=== PATIENT | female | born 1955 | race Caucasian/White ===

== ENCOUNTER → 2021-05-30 10:03 | Outpatient (CLI) | payer MEDICARE, OTHER, SELFPAY ==
[2021-05-30 19:03] LABS: Creatine Kinase 93 U/L (30-135)
== END ==
PROVIDERS: PCP Physician Assistant; Referring Provider Physician Assistant Medical; Visit Provider Physician Assistant Medical
DX: M79.10 Myalgia, unspecified site (principal)
CPT/HCPCS: 82550

== ENCOUNTER → 2021-09-25 08:04 | Outpatient (CLI) | payer MEDICARE, OTHER, SELFPAY ==
[2021-09-25 18:36] LABS: Add Manual Diff / Slide Review NO; Basophils Absolute Auto 0 /uL (0-100); Eosinophils Absolute Auto 100 /uL (0-450); Eosinophils Percent Auto 1.4 % (2-4); Hematocrit 39.3 % (36-46); Hemoglobin 13.6 g/dL (12.0-16.0); Lymphocytes Absolute Auto 2100 /uL (1100-4500); Lymphocytes Percent Auto 51.4 % (25-40); Mean Corpuscular HGB Conc 34.7 % (30-36); Mean Corpuscular Hemoglobin 30.8 PG (26-34); Mean Corpuscular Volume 88.9 fL (80-100); Monocytes Absolute Auto 400 /uL (0-900); Monocytes Percent Auto 9.5 % (3-14); Neutrophils Absolute Auto 1500 /uL (1500-7000); Neutrophils Percent Auto 36.7 % (50-75); Platelet Count 258 X10^3/uL (150-400); Red Blood Cell Count 4.42 X10^6/uL (4.0-5.2); Red Cell Distribution Width 13.5 % (11.6-14.8); White Blood Cell Count 4.1 X10^3/uL (4.5-11.0)
[2021-09-25 19:00] LABS: Alanine Aminotransferase 21 IU/L (<35); Albumin 4.4 g/dL (3.5-5.0); Albumin Globulin Ratio 1.7 (1.0-2.8); Alkaline Phosphatase 62 U/L (38-126); Aspartate Aminotransferase 29 IU/L (14-36); BUN Creatinine Ratio 10.1 (6-22); Bilirubin Total 0.7 mg/dL (0.2-1.3); Blood Urea Nitrogen 9 mg/dL (7-17); Calcium 9.6 mg/dL (8.4-10.2); Carbon Dioxide 30 mmol/L (22-32); Chloride 105 mmol/L (98-107); Cholesterol 274 mg/dL (140-199); Estimated Glomerular Filt Rate > 60.0 mL/min (>60); Globulin 2.6 g/dL (1.7-4.1); Glucose 96 mg/dL (80-110); HDL Cholesterol 89 mg/dL (40-60); HEMOLYSIS < 15 (0-50); LDL Cholesterol Calculated 164 mg/dL (<100); Potassium 3.9 mmol/L (3.4-5.1); Sodium 139 mmol/L (137-145); Triglycerides 104 mg/dL (35-150)
== END ==
PROVIDERS: PCP Physician Assistant Medical; Visit Provider Physician Assistant Medical
DX: I10 Essential (primary) hypertension (principal); I73.01 Raynaud's syndrome with gangrene; E78.5 Hyperlipidemia, unspecified; Z13.0 Encounter for screening for diseases of the blood and blood-forming organs and certain disorders involving the immune mechanism; Z13.228 Encounter for screening for other metabolic disorders; Z13.29 Encounter for screening for other suspected endocrine disorder
CPT/HCPCS: 80053; 80061; 84443; 85025

== ENCOUNTER → 2021-10-23 09:29 | Outpatient (CLI) | payer MEDICARE, OTHER, SELFPAY ==
--- NOTE | 2021-10-23 | DI.MRI.S_ITS ---
PROCEDURE: MR KNEE RT WO CON INDICATIONS: Other tear of medial meniscus, current injury, right knee, s TECHNIQUE: Noncontrast sagittal PD fast spin echo and T2 fast spin echo with fat saturation, sagittal 3-D FLASH with fat saturation; coronal T1 spin echo and PD fast spin echo with fat saturation, and axial PD fast spin echo with fat saturation through the knee. COMPARISON: [facility], CR, XR KNEE 4+ VIEWS RIGHT, 06/20/2021, 13:44. FINDINGS: Image quality: Excellent. Anterior Cruciate Ligament: Intact. Posterior Cruciate Ligament: Intact. Medial Collateral Ligament: Intact. Lateral Collateral Ligament: Intact. Medial Meniscus: Horizontal oblique tearing of the posterior horn and body of the medial meniscus is seen extending to the mid to inner third of the tibial articular surface. Lateral Meniscus: Mild intrasubstance signal is seen without extension to an articular surface, consistent with mild intrasubstance degeneration. Medial and Lateral Tendons: The semimembranosus tendon insertions and meniscocapsular junction appear intact. Visualized portions of the pes anserinus tendons appear normal. No abnormal bursal fluid. The long and short heads of the biceps femoris tendon appear intact. The popliteus tendon appears intact. No signs of posterolateral corner injury. Iliotibial band appears normal. Anterior Structures: Mild distal quadriceps tendinosis with superior patellar enthesophyte formation. No patellar subluxation. No femoral trochlear dysplasia or ventral trochlear prominence. Mild scarring is seen in Hoffa's fat pad. Bones: No acute trabecular bone injury or fracture. Medial Femorotibial Cartilage: Grade 3-4 cartilage thinning is seen throughout the weight-bearing portion of the medial femorotibial compartment with subchondral cystic changes at the central weight-bearing portion. Lateral Femorotibial Cartilage: Focal and cartilage loss at the posterior weight-bearing portion of the lateral tibial plateau with mild subchondral edema. Findings are superimposed on generalized mild partial-thickness cartilage thinning. Patellofemoral Cartilage: Full-thickness cartilage loss is seen at the median ridge and lateral facet of the patella with subchondral cystic changes and edema. Grade 3 chondromalacia is seen in the trochlear groove. Soft Tissues: Small joint effusion is present. Trace medial popliteal cyst. The musculature surrounding the knee is normal in bulk. IMPRESSION: 1. Horizontal oblique tearing of the posterior horn and body of the medial meniscus extending to the mid to inner third of the tibial articular surface. 2. Mild intrasubstance degeneration in the lateral meniscus without a discrete tear. 3. Tricompartmental osteoarthrosis with areas of high-grade and full-thickness cartilage loss in all 3 compartments. 4. Mild distal quadriceps tendinosis. 5. Small joint effusion. Dictated by: Sreedhar Galvan M.D. on 10/23/2021 at 13:40 Approved by: Sreedhar Galvan M.D. on 10/23/2021 at 13:47
== END ==
PROVIDERS: PCP Physician Assistant Medical; Referring Provider Orthopaedic Surgery Foot and Ankle Surgery; Visit Provider Orthopaedic Surgery Foot and Ankle Surgery
DX: S83.241A Other tear of medial meniscus, current injury, right knee, initial encounter (principal); M17.11 Unilateral primary osteoarthritis, right knee; M25.461 Effusion, right knee; X58.XXXA Exposure to other specified factors, initial encounter
CPT/HCPCS: 73721

== ENCOUNTER → 2022-04-25 11:08 | Outpatient (CLI) | payer MEDICARE, OTHER, SELFPAY ==
[2022-04-25 19:19] LABS: Add Manual Diff / Slide Review NO; Basophils Absolute Auto 0 /uL (0-100); Basophils Percent Auto 0.7 % (0-2); Eosinophils Absolute Auto 0 /uL (0-450); Eosinophils Percent Auto 0.9 % (2-4); Hematocrit 43.8 % (36-46); Hemoglobin 14.9 g/dL (12.0-16.0); Lymphocytes Absolute Auto 1800 /uL (1100-4500); Lymphocytes Percent Auto 33.6 % (25-40); Mean Corpuscular HGB Conc 34.1 % (30-36); Mean Corpuscular Hemoglobin 30.8 PG (26-34); Mean Corpuscular Volume 90.3 fL (80-100); Monocytes Absolute Auto 400 /uL (0-900); Monocytes Percent Auto 7.2 % (3-14); Neutrophils Absolute Auto 3200 /uL (1500-7000); Neutrophils Percent Auto 57.6 % (50-75); Platelet Count 305 X10^3/uL (150-400); Red Blood Cell Count 4.85 X10^6/uL (4.0-5.2); Red Cell Distribution Width 13.3 % (11.6-14.8); White Blood Cell Count 5.5 X10^3/uL (4.5-11.0)
[2022-04-25 19:27] LABS: Alanine Aminotransferase 21 IU/L (<35); Albumin 4.9 g/dL (3.5-5.0); Albumin Globulin Ratio 1.5 (1.0-2.8); Alkaline Phosphatase 89 U/L (38-126); Aspartate Aminotransferase 26 IU/L (14-36); BUN Creatinine Ratio 17.6 (6-22); Bilirubin Total 0.7 mg/dL (0.2-1.3); Blood Urea Nitrogen 13 mg/dL (7-17); Calcium 9.8 mg/dL (8.4-10.2); Carbon Dioxide 28 mmol/L (22-32); Chloride 102 mmol/L (98-107); Estimated Glomerular Filt Rate > 60 mL/min (>60); Globulin 3.3 g/dL (1.7-4.1); Glucose 114 mg/dL (80-110); HEMOLYSIS < 15 (0-50); Potassium 4.3 mmol/L (3.4-5.1); Sodium 141 mmol/L (137-145); Total Protein 8.2 g/dL (6.3-8.2); Triglycerides 126 mg/dL (35-150)
[2022-04-25 19:45] LABS: Hemoglobin A1C% w Est Avg Glu 5.6 % (4.0-6.0)
[2022-04-25 19:57] LABS: Cholesterol 348 mg/dL (140-199); HDL Cholesterol 125 mg/dL (40-60); LDL Cholesterol Calculated 198 mg/dL (<100)
[2022-04-25 21:16] LABS: TSH w/ Reflex to FT4 2.06 uIU/mL (0.47-4.68)
== END ==
PROVIDERS: Orthopaedic Surgery Foot and Ankle Surgery; PCP Physician Assistant Medical; Visit Provider Physician Assistant Medical
DX: I10 Essential (primary) hypertension (principal); I73.01 Raynaud's syndrome with gangrene; R73.9 Hyperglycemia, unspecified; D72.819 Decreased white blood cell count, unspecified; K27.9 Peptic ulcer, site unspecified, unspecified as acute or chronic, without hemorrhage or perforation; Z12.11 Encounter for screening for malignant neoplasm of colon; Z13.0 Encounter for screening for diseases of the blood and blood-forming organs and certain disorders involving the immune mechanism; Z13.228 Encounter for screening for other metabolic disorders; Z13.29 Encounter for screening for other suspected endocrine disorder; E78.5 Hyperlipidemia, unspecified
CPT/HCPCS: 80053; 80061; 83036; 84443; 85025

== ENCOUNTER → 2022-05-29 08:06 | Outpatient (CLI) | payer MEDICARE, OTHER, SELFPAY ==
[2022-05-29 20:59] LABS: COVID19 - ORCAS (NP or Nasal) Negative (Negative)
== END ==
PROVIDERS: PCP Physician Assistant Medical; Visit Provider Physician Assistant Medical
DX: Z20.822 Contact with and (suspected) exposure to COVID-19 (principal); Z01.812 Encounter for preprocedural laboratory examination
CPT/HCPCS: C9803; U0003

== ENCOUNTER 2022-05-31 06:05 | Day surgery (SDC) | payer MEDICARE, OTHER, SELFPAY ==
[2022-05-21 11:48] VITALS: BMI 22.6
[2022-05-31] VITALS (12 sets, daily range): BP systolic 120–159; BP diastolic 59–88; PULSE 71–102; RESP 11–22; TEMP 36.1–36.9; O2SAT 94–100; BMI 22.6; BMI 25.8
--- NOTE | 2022-05-31 06:00 | DI.RAD.S_ITS ---
PROCEDURE: XR KNEE RT 1TO2V INDICATIONS: postop tka TECHNIQUE: 2 view(s) of the knee acquired. COMPARISON: None. FINDINGS: Bones: Patient is status post knee joint arthroplasty. Hardware components are in expected positions. Visualized bony structures are intact. Soft tissues: Overlying postoperative changes are noted. IMPRESSION: Postoperative changes from right knee arthroplasty. No definite unexpected findings. Dictated by: Sreedhar Wilburn M.D. on 05/31/2022 at 17:24 Approved by: Sreedhar Wilburn M.D. on 05/31/2022 at 17:25
--- NOTE | 2022-05-31 07:06 | PM.PREOP ---
Pre-operative Note COVID-19 COVID-19 status: Negative Interval Note History & Physical reviewed/Exam performed by Physician: Yes Changes to H&P: No
[2022-05-31] MEDS: CELECOXIB 200 MG CAPSULE PO (07:13)
[2022-05-31] MEDS: LACTATED RINGERS 1,000 ML 42 ML IV (07:13)
[2022-05-31] MEDS: ACETAMINOPHEN 325 MG TABLET 975 MG PO (07:13)
[2022-05-31] MEDS: TRANEXAMIC ACID 1,000 MG in SODIUM CHLORIDE 0.9% 100 ML 200 MG IV (08:00)
[2022-05-31] MEDS: CEFAZOLIN 2 GM/100 ML PREMIX 100 ML IV ×2 (08:04→15:01)
--- NOTE | 2022-05-31 08:13 | SUR.OPER ---
Supine on padded OR bed, head on pillow, arms secured on padded arm boards at <90 degrees abduction, legs uncrossed, safety belt at thigh, tape over blanket over left leg. Stockinette placed between touniquet and skin.
--- NOTE | 2022-05-31 08:17 | SUR.OPER ---
Supine on padded OR bed. Pillow under head, arms secured on padded armboards <90 degree abduction. Safety belt across torso. Non-operative leg secured with tape over blanket over lower leg. Operative leg secured in DeMayo positioner. Foam padded brace at thigh of operative leg.
[2022-05-31] MEDS: BUPIVACAINE 0.25% (PF) 60 ML, EPINEPHrine 0.3 MG INJ (08:32)
[2022-05-31] MEDS: BUPIVACAINE LIPOSOME 266 MG/20 ML VIAL INJ (08:33)
[2022-05-31] MEDS: MORPHINE 4 MG/ML INJ INJ (08:39)
[2022-05-31] MEDS: TRANEXAMIC ACID 1,000 MG in SODIUM CHLORIDE 0.9% 100 ML 100 MG IV (10:16)
--- NOTE | 2022-05-31 11:07 | P.OP_ITS ---
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 She has failed conservative treatment. She has been indicated for right total knee arthroplasty. The patient has significant pain associated with arthritis of her knee and morning stiffness interfering with normal daily function including ambulation standing and activities that are weight-bearing. There is significant crepitation range of motion and marked joint line tenderness with x-rays showing significant level of arthritis. Patient has failed an exercise program, anti-inflammatory medications and previous injections. The risks and benefits of the procedure have been discussed with the patient and given the opportunity to ask questions. The risks of surgery include but are not limited to infection, malunion, nonunion, persistence of pain, damage to nerves and blood vessels, posttraumatic arthritis, DVT, PE, cardiopulmonary complications and . The patient expressed a thorough understanding of the risks and benefits of surgery and has elected to proceed. Consent was signed in the office. During the operation, the services of a physician surgical supervisor were medically indicated and necessary to provide the exposure of the operative site for the surgical procedure and to maintain the limb in a proper position to carry out the operation safely and efficiently. Without a qualified assistant art director being present this would extended the operative procedure and made the procedure technically more difficult to perform. Surgeon: Dilma Davidson Orange Picking Supervisor: Carrie Lora Anesthesia Type: General, Spinal and Local Operative Notes Findings: Full-thickness cartilage loss medial compartment and patellofemoral compartment. Closure Type: primary Specimen(s): none sent Prosthetic devices, grafts, tissues, transplants, or devices: Huerta and nephew Journey BCS2 Femur size 6 Oxinium, right Tibia size 3 right nonporous Patella zina II 29 mm x 7.5 round Poly 9 mm right size 3-4 Estimated Blood Loss (mL): 50 Blood products transfused: none Tourniquet time (min): 124 Procedure in detail: The Patient was seen in the preoperative area where the patient and site of surgery were identified in the operative knee was marked informed consent confirmed. This was the right knee. The patient received the appropriate preoperative medications. The patient was taken to the operating room placed on operating table in the supine position. Spinal anesthetic were administered. A general anesthetic was also used. Patient received the appropriate preoperative antibiotic which was 2 g of Ancef. The operative extremity was then prepped and draped in the standard sterile fashion with a nonsterile tourniquet high on the thigh. Patient was placed on the green foam bolsters. A lateral post was placed at the level of the proximal thigh /trochanter area as a lateral post. Formal time-out procedure was performed confirming the patient's side and site of surgery and administration of appropriate preoperative antibiotics and implants were in the room accounted for. All were in agreement. Patient received a preoperative dose of 1 g tranexamic acid and then a 2nd dose 1 g at tourniquet release. Patient was prepped and draped in the standard sterile fashion and the foot was placed into the [facility] leg guo. This was taken into high flexion and the incision was marked out over the anterior knee to the level of the medial tubercle tubercle. The Esmarch was then used for exsanguination and the tourniquet was inflated to 250 mmHg. Was made through the skin and subcutaneous tissue in high flexion this was then brought down into 30? of flexion for the medial parapatellar arthrotomy. A marker pen was used to reji the arthrotomy site for later repair. Joint fluid was evacuated. The anterior osteophytes and soft tissues were removed. Routine medial release was initially made along the medial proximal tibia with Bovie. The patella was on quite a bit of tension on attempted eversion so the quad incision was lengthened to relax it and then the patella was 1st cut using the saw sized and then subluxed throughout the case and protected. Leg was taken back up through flexion and attention was returned to the femur. Then the rotational landmarks of Whitesides line and the trans epicondylar axis were marked on the femur with electrocautery. Then the intramedullary guide for the femur was created. The distal femoral cut was made in 6? of valgus using the intramedullary guide with the cut setting on 0+ as the patient did not have a preoperative flexion contracture this just skimmed the condyles so the guide was then moved back to the +2 cut to get a good butterfly cut appearance of the distal femur. The ACL and PCL released. The proximal tibia was then cut using the intramedullary guide, taking 9 mm off the less involved side this was the lateral plateau. The Mychal wing was used to check the slope through the guide. Second pass was made through the tibial cut guide with the saw after the cut tibia was removed plane down about 1 more mm and further smooth then the resection surface. In extension remainders of the medial and lateral menisci were removed. The extension flexion gaps were then checked using both the flexion extension blocks. And was selected for a 9 mm poly which fit excellent in flexion and extension without any gapping or laxity. The Femur was then sized and the rotation set using the posterior condyle referencing. This was matched with Whitesides line this was dialed in to 5? external rotation at the posterior condyles. This measured between a 5 size and 6. Initially the size 5 cut block was on the Mychal wing was checked this was felt like it was going to notch laterally so it was moved anterior and checked it 1 or 2 mm + and this was still close so the block was upsized to was 6 which fit well. An Mychal wing passed without evidence of notching. The Cut block was then placed and the anterior, posterior and chamfer cuts were then made. The posterior osteophytes and soft tissues were then removed. Then in extension the posterior capsule was injected with a mixture of 40 mL of 0.25% Marcaine and 20 mL of Exparel care to avoid excessive injection posterior laterally. The remainder of this was saved for the capsule and subcutaneous tissue and placed during cement curing. Attention was then returned to the tibia and this was prepared with the rotation set by the intramedullary guide. Lined up with the tibial crest and the 2nd toe. The tibia was sized to a 3 which had excellent fit anterior medially and posterior laterally. The tibial trial was then pinned in place and the trial femoral components were placed. Then the intercondylar notch was cut through the femoral trial to create the box this was done with the distal than the proximal drill and then the box cut distally and then proximally. Next the insert was placed and the trial poly placed. This was stable in flexion and extension and there was a 0- 135 degree range of motion. The patella was then finished this was sized to a 29 and the patellar buttonholes were drilled. The 29 x 7.5 patella button trial was placed and the knee was taken through range of motion the patella tracked appropriately. The tibia was then finished with the drill and flange cuts and then this was removed. All trials were removed. The wound and bone was irrigated with pulsatile lavage. This was then dried with a sponge. The components were verified and opened and the cement was mixed. Cement was applied to the components and then to the bone then the tibia was cemented in place 1st followed by the femur then the patella. Excess cement was removed. With care looking around the back of the knee. Remainder of the injection was injected around the capsule. trial 9 mm poly was placed back in the leg was placed into extension for the patellar cementing. After this was cured approximately 15 minutes later and the dilute Betadine solution was placed for at least 3 minutes in the wound this was then irrigated out and the final poly was placed. This was a 9 mm poly. The tourniquet was released hemostasis was achieved. Final 1 g of tranexamic acid was given IV at the time of tourniquet release. The capsule was closed with 1. Ethibond suture. Subcutaneous layer was closed with 3-0 Vicryl suture. Skin was closed with a running V lock suture Stratafix Monocryl type suture and Dermabond. An Aquacel dressing was placed. An Giovani wrap was applied. Anesthetic was terminated the patient was woken from anesthesia and taken to recovery room in good condition. There no immediate complications from this procedure. The patient will be maintained on a standard total knee replacement protocol with weight-bearing as tolerated. Complications: none Post-operative Condition: stable Disposition: PACU Plan for aftercare: Weightbear as tolerated right knee. Will start aspirin for DVT prophylaxis. 81 mg b.i.d.. Work with physical therapy. Plan on discharge home today. Will start outpatient physical therapy. Follow-up in 2 weeks for a wound check. May shower with the Aquacel dressing. Patient has prescriptions for pain medications and antiemetics already.
[2022-05-31] MEDS: KETOROLAC 30 MG/ML VIAL IV (11:19)
[2022-05-31] MEDS: HYDROCODONE/ACET 5/325 TABLET 1 TAB PO (11:25)
[2022-05-31] MEDS: ONDANSETRON 4 MG/2 ML INJ IV (11:32)
[2022-05-31] MEDS: LACTATED RINGERS 1,000 ML 100 ML IV ×2 (12:42→15:01)
[2022-05-31] MEDS: ACETAMINOPHEN 325 MG TABLET 650 MG PO ×2 (12:42→17:04)
--- NOTE | 2022-05-31 15:00 | PT.IIE ---
Current Diagnoses Unilateral primary osteoarthritis, right knee (05/31/22) Personal history of other (healed) physical injury and trauma (05/31/22) Surgery Performed Operation Date: 05/31/22 07:45 Actual Procedures p Total Knee Arthroplasty(Right) - Dilma Davidson MD Surgical History (Last Updated 05/21/22 @ 12:06 by Alycia Schmidt, RN) Anesthesia History of arthroscopic knee surgery History of arthroscopic surgery of shoulder History of cataract removal with insertion of prosthetic lens History of colonoscopy with polypectomy History of orthopedic surgery (~2014) History of tubal ligation (~1993) Medical History (Last Updated 05/21/22 @ 12:03 by Alycia Schmidt RN) Cataracts, bilateral (~2014) Facial neuralgia Hemorrhoid (~1989) Skin cancer (~2019) Physical Therapy Inpatient Evaluation/Re-Eval M1 PT/OT-IP Prior Functional Status Start: 05/31/22 16:26 Freq: NEEDED Status: Active Protocol: Document 05/31/22 15:00 AB (Rec: 05/31/22 16:35 AB [id number]) Medical Review Prior Functional Status Medical History Reviewed Yes Communication able to make needs known Mobility and Gait pt stated that she is independent with all mobilities and ambulation without AD Social History Household Members spouse Living Arrangements House Number of Floors (Floors) Two Floors Number of Stairs To Enter/Railing? 12 steps with wide rails to enter the house 12 steps with L rail ascending to bedroom level Home Environment Standard Height Toilet,Tub/ Shower Home Equipment Crutches M2 PT-IP Current Condition Start: 05/31/22 16:26 Freq: NEEDED Status: Active Protocol: Document 05/31/22 15:00 AB (Rec: 05/31/22 16:35 AB [email or web address]) Physical Therapy Current Condition Current Condition Evaluation Date 05/31/22 Treatment Diagnosis s/p R TKA; difficulty in walking Onset Date 05/31/22 M3 PT-IP Subjective Start: 05/31/22 16:26 Freq: NEEDED Status: Active Protocol: Document 05/31/22 15:00 AB (Rec: 05/31/22 16:35 AB [id number]) Subjective Physical Therapy Visit Type Type Initial Evaluation Visit Start Time 15:00 Visit Stop Time 15:45 Total Visit Minutes 45 Number of MICROSOFT ARCHITECT Visits 0 Physical Therapy Visit Comments Patient Comments pt is agreeable to do PT Therapy Pain Assessment Pain When Pain Assessed At Rest Pain Present Pain Present Pain Reported Location Right Knee Intensity 2 Scale Used Numeric (0 - 10) Pain Management Techniques Apply Cold,Distraction, Elevation,Modification of Treatment,Re-positioning, Timing of Activity with Medications M4 PT-IP Mobility and Gait Start: 05/31/22 16:26 Freq: NEEDED Status: Active Protocol: Document 05/31/22 15:00 AB (Rec: 05/31/22 16:35 AB [id number]) PT-Bed Mobility Assessment Supine to Sit Supine to Sit Standby Assistance PT-Transfer Assessment Sit to and From Stand Sit to and from Stand Standby Assistance,1 Person Assistance,Use of Upper Extremities Equipment Transfer Assistive Device Gait Belt,Axillary Crutches Orthotic/Prosthetic Devices or Brace: No Transfers Transfer Destination Chair Transfer Technique ambulated Transfer Ability Level of Assist Standby Assistance,1 Person Assistance,Use of Upper Extremities Comments Mobility Comments pt completed supine to sit SBA . completed sit to stand using crutches SBA. pt ambulated in room using crutches SBA. pt agreed to do stairs. ambulated in the hallway using crutches ~ 125 ft. assisted to the stairs. completed up/down steps using L rail and crutches sBA and then repeated again with just using crutches SBA. pt ambulated back to her room using crutches ~ 200 ft SBA. pt ambulated to bed. positioned in bed. call light and table placed within reach . Gait Assessment Gait Gait Assistance Required: Standby Assistance,1 Person Assist Distance (Feet) 200 Able to Maintain Weight Bearing Status Yes During Gait Assistive Devices Assistive Device Gait Belt,Axillary Crutches Orthotic/Prosthetic Devices or Brace: No Gait Deviations General Gait Pattern Decreased Stride Length, Decreased Feet Clearance Factors Limiting Gait Function Factors Limiting Gait Function Decreased Activity Tolerance, Decreased Strength,Pain,Poor Balance Stair Climbing Assessment Evaluation Level of Assist On Stairs Standby Assistance Devices Stair Climbing Assistive Devices Axillary Crutches,Left Railing Technique/Endurance Stair Climbing Direction Ascend and Descend Stair Climbing Technique Step to Step Number of Steps Climbed 3 Query Text: Stair Climbing Set # Repetitions (reps) 2 PT-Balance Assessment Sitting Balance and Reactions Static Sitting Balance Ability Normal Dynamic Sitting Balance Ability Normal Standing Balance and Reactions Static Standing Balance Ability Good Dynamic Standing Balance Ability Fair Device Used crutches M5 PT-IP Objective Assessments Start: 05/31/22 16:26 Freq: NEEDED Status: Active Protocol: Document 05/31/22 15:00 AB (Rec: 05/31/22 16:35 AB [id number]) Orientation Orientation/Cognition Level of Alertness Alert Orientation Name,Age,Birthday,Month,Date, Year,Day of Week,Place, Situation Language Function Ability No Deficits Noted Safety Awareness Understands Safety Issues Memory Description No Deficits Noted Gross Range of Motion Lower Extremity ROM Assessment Within Functional Limits Strength Lower Extremity Strength Assessment Within Functional Limits Coordination Assessment Gross Coordination Gross Coordination WNL Sensation Assessment Sensation Gross Sensation WNL Muscle Tone Muscle Tone WNL Yes M6 PT-IP Treatment Start: 05/31/22 16:26 Freq: NEEDED Status: Active Protocol: Document 05/31/22 15:00 AB (Rec: 05/31/22 16:35 AB [id number]) Physical Therapy Treatment Education Education Provided Precautions,Weight Bearing Status,Post-Op Packet,Safety M7 PT-IP Assessment and Plan Start: 05/31/22 16:26 Freq: NEEDED Status: Active Protocol: Document 05/31/22 15:00 AB (Rec: 05/31/22 16:35 AB [id number]) PT Summary Assessment and Plan Potential Rehabilitation Potential Good Status of Condition at Evaluation Stable Summary Impairments Pain,ROM,Strength,Balance, Coordination,Sensation,Tone, Cognition,Bed Mobility, Transfers,Gait,Activity Tolerance Assessment Summary pt requiring SBA with mobility using axillary crutches. pt plans to go home with spouse to assist. pt may go home when medically stable. Goals Bed Mobility Goal Independent Transfer Goal Independent,Crutches Gait Goal Independent,Crutches Gait Distance 300 Other Goals up/down 12 steps using crutches mod I Days to Meet Goals 5 Frequency of Treatment Frequency Of Treatment Twice a Day Treatment Plan Physical Therapy Treatment Plan Bed Mobility Training,Transfer Training,Gait Training, Therapeutic Exercise,Balance Retraining,Post Op Education, Discharge Planning,Hot or Cold Pack,Neuromuscular Re-ed, Coordination Retraining,Manual Therapy Weight Bearing Status Weight Bearing Status Weight Bear as Tolerated Allowed Weight Bearing Amount (enter % WBAT RLE or #) (%) Recommendations To Nursing Amount of Assist Needed Standby Assistance Discharge Recommendations PT Discharge Recommendations Home with Assistance, Outpatient PT Transportation Needs at Discharge Private Vehicle
[2022-05-31] MEDS: ONDANSETRON 4 MG ODT PO (18:16)
== END 2022-05-31 18:55 | disposition home or self-care (01) ==
LOC: OR 07:24 → AC 12:30
PROVIDERS: PCP Physician Assistant Medical; Referring Provider Orthopaedic Surgery Foot and Ankle Surgery; Visit Provider Orthopaedic Surgery Foot and Ankle Surgery
PROC: 0SRC0JZ Replacement of Right Knee Joint with Synthetic Substitute, Open Approach (ICD-10-PCS; CPT 27447; principal; 2022-05-31 07:45)
DX: M17.11 Unilateral primary osteoarthritis, right knee (principal); I10 Essential (primary) hypertension; E78.5 Hyperlipidemia, unspecified
CPT/HCPCS: 27447; 73560; 97116; 97161; C1776; C1713; C9290; J0171; J0690; J1100; J1170; J1885; J2250; J2270; J2405; J2704; J3010

== ENCOUNTER → 2022-11-11 08:32 | Outpatient (CLI) | payer MEDICARE, OTHER, SELFPAY ==
[2022-05-31 12:42] VITALS: BMI 25.8
[2022-11-11 09:13] LABS: Add Manual Diff / Slide Review NO; Basophils Absolute Auto 0 /uL (0-100); Basophils Percent Auto 0.7 % (0-2); Eosinophils Absolute Auto 100 /uL (0-450); Hematocrit 37.6 % (36-46); Hemoglobin 12.9 g/dL (12.0-16.0); Lymphocytes Absolute Auto 2000 /uL (1100-4500); Mean Corpuscular HGB Conc 34.4 % (30-36); Mean Corpuscular Hemoglobin 30.8 PG (26-34); Mean Corpuscular Volume 89.7 fL (80-100); Monocytes Absolute Auto 500 /uL (0-900); Monocytes Percent Auto 8.5 % (3-14); Neutrophils Absolute Auto 3200 /uL (1500-7000); Neutrophils Percent Auto 54.8 % (50-75); Platelet Count 308 X10^3/uL (150-400); Red Cell Distribution Width 14.8 % (11.6-14.8); White Blood Cell Count 5.8 X10^3/uL (4.5-11.0)
--- NOTE | 2022-11-11 09:27 | DI.MRI.S_ITS ---
PROCEDURE: MR KNEE RT WO CON INDICATIONS: RIGHT KNEE PAIN, EFFUSION TECHNIQUE: Noncontrast sagittal PD fast spin echo and T2 fast spin echo with fat saturation, sagittal 3-D FLASH with fat saturation; coronal T1 spin echo and PD fast spin echo with fat saturation, and axial PD fast spin echo with fat saturation through the knee. COMPARISON: [facility] [place], CR, XR KNEE 4+ VIEWS RIGHT, 10/01/2022, 15:29. [facility], CR, XR KNEE 4+ VIEWS RIGHT, 08/20/2022, 13:53. [facility], CR, XR KNEE 4+ VIEWS RIGHT, 07/15/2022, 12:22. [facility], CR, XR KNEE RT 1TO2V, 05/31/2022, 11:25. [facility], MR, MR KNEE RT WO CON, 10/23/2021, 9:51. FINDINGS: Image quality: Excellent. Bones: There are postsurgical changes related to total knee arthroplasty. Metallic artifacts obscure adjacent areas. Soft tissue: There is focal thickening of the lateral patellofemoral ligament/patellar retinaculum. No mass deep to the superficial skin marker. Mild quadriceps and patellar tendinitis. No quadriceps or patellar tendon tear. There is moderate knee joint fluid. Trace Castillo's cyst. IMPRESSION: 1. Total knee arthroplasty with metallic artifacts obscuring adjacent structures. 2. Focal thickening of the lateral patellofemoral ligament/patellar retinaculum consistent with partial tear or scarring. 3. Moderate knee joint effusion. 4. Mild quadriceps tendinitis and patellar tendinitis. Dictated by: Mathew Valdez M.D. on 11/11/2022 at 10:28 Approved by: Mathew Valdez M.D. on 11/11/2022 at 10:36
[2022-11-11 09:46] LABS: C-Reactive Protein Quant 0.5 mg/dL (<1.0)
[2022-11-11 10:30] LABS: Erythrocyte Sedimentation Rate 7 MM/HR (0-20)
== END ==
PROVIDERS: PCP Physician Assistant Medical; Referring Provider Orthopaedic Surgery Foot and Ankle Surgery; Visit Provider Orthopaedic Surgery Foot and Ankle Surgery
DX: M23.91 Unspecified internal derangement of right knee (principal); M76.51 Patellar tendinitis, right knee; M25.561 Pain in right knee; M25.461 Effusion, right knee; Z96.651 Presence of right artificial knee joint
CPT/HCPCS: 36415; 73721; 85025; 85651; 86140

== ENCOUNTER → 2023-04-17 09:23 | Outpatient (CLI) | payer MEDICARE, OTHER, SELFPAY ==
[2022-05-31 12:42] VITALS: BMI 25.8
[2023-04-17 21:10] LABS: Add Manual Diff / Slide Review NO; Basophils Absolute Auto 100 /uL (0-100); Basophils Percent Auto 0.9 % (0-2); Eosinophils Absolute Auto 0 /uL (0-450); Eosinophils Percent Auto 0.6 % (2-4); Hematocrit 40.5 % (36-46); Hemoglobin 13.9 g/dL (12.0-16.0); Lymphocytes Absolute Auto 2000 /uL (1100-4500); Lymphocytes Percent Auto 34.8 % (25-40); Mean Corpuscular HGB Conc 34.4 % (30-36); Mean Corpuscular Hemoglobin 30.6 PG (26-34); Mean Corpuscular Volume 89.1 fL (80-100); Monocytes Absolute Auto 400 /uL (0-900); Neutrophils Absolute Auto 3200 /uL (1500-7000); Neutrophils Percent Auto 56.7 % (50-75); Platelet Count 300 X10^3/uL (150-400); Red Blood Cell Count 4.55 X10^6/uL (4.0-5.2); Red Cell Distribution Width 13.9 % (11.6-14.8); White Blood Cell Count 5.7 X10^3/uL (4.5-11.0)
[2023-04-17 21:46] LABS: Alanine Aminotransferase 27 IU/L (<35); Albumin 4.6 g/dL (3.5-5.0); Albumin Globulin Ratio 1.5 (1.0-2.8); Alkaline Phosphatase 79 U/L (38-126); Aspartate Aminotransferase 32 IU/L (14-36); BUN Creatinine Ratio 12.7 (6-22); Bilirubin Total 0.8 mg/dL (0.2-1.3); Blood Urea Nitrogen 10 mg/dL (7-17); Calcium 9.1 mg/dL (8.4-10.2); Carbon Dioxide 25 mmol/L (22-32); Chloride 102 mmol/L (98-107); Cholesterol 309 mg/dL (140-199); Estimated Glomerular Filt Rate > 60 mL/min (>60); Globulin 3.1 g/dL (1.7-4.1); Glucose 93 mg/dL (80-110); HDL Cholesterol 95 mg/dL (40-60); HEMOLYSIS 19 (0-50); LDL Cholesterol Calculated 186 mg/dL (<100); Potassium 4.2 mmol/L (3.4-5.1); Sodium 139 mmol/L (137-145); Total Protein 7.7 g/dL (6.3-8.2); Triglycerides 142 mg/dL (35-150)
[2023-04-17 22:04] LABS: Vitamin D 25 Hydroxy (D3) 44.9 ng/mL (30.0-100.0)
[2023-04-17 22:17] LABS: TSH w/ Reflex to FT4 2.13 uIU/mL (0.47-4.68)
== END ==
PROVIDERS: PCP Family Medicine; Visit Provider Family Medicine
DX: E78.00 Pure hypercholesterolemia, unspecified (principal); M81.0 Age-related osteoporosis without current pathological fracture; E78.5 Hyperlipidemia, unspecified; I10 Essential (primary) hypertension; Z82.62 Family history of osteoporosis
CPT/HCPCS: 80053; 80061; 82306; 84443; 85025

== ENCOUNTER → 2023-07-21 10:14 | Outpatient (CLI) | payer MEDICARE, OTHER, SELFPAY ==
[2022-05-31 12:42] VITALS: BMI 25.8
[2023-07-21 19:31] LABS: Add Manual Diff / Slide Review NO; Basophils Absolute Auto 100 /uL (0-100); Basophils Percent Auto 0.9 % (0-2); Eosinophils Absolute Auto 200 /uL (0-450); Eosinophils Percent Auto 3.8 % (2-4); Hematocrit 38.7 % (36-46); Hemoglobin 13.3 g/dL (12.0-16.0); Lymphocytes Absolute Auto 2400 /uL (1100-4500); Mean Corpuscular HGB Conc 34.4 % (30-36); Mean Corpuscular Hemoglobin 30.4 PG (26-34); Mean Corpuscular Volume 88.5 fL (80-100); Monocytes Absolute Auto 600 /uL (0-900); Monocytes Percent Auto 10.3 % (3-14); Neutrophils Absolute Auto 2400 /uL (1500-7000); Platelet Count 341 X10^3/uL (150-400); Red Blood Cell Count 4.38 X10^6/uL (4.0-5.2); Red Cell Distribution Width 13.7 % (11.6-14.8); White Blood Cell Count 5.6 X10^3/uL (4.5-11.0)
[2023-07-21 19:57] LABS: C-Reactive Protein Quant 0.6 mg/dL (<1.0)
[2023-07-21 20:32] LABS: Erythrocyte Sedimentation Rate 23 MM/HR (0-20)
== END ==
PROVIDERS: PCP Family Medicine; Visit Provider Family Medicine
DX: R79.82 Elevated C-reactive protein (CRP) (principal)
CPT/HCPCS: 85025; 85651; 86140

== ENCOUNTER → 2024-04-28 10:00 | Outpatient (CLI) | payer MEDICARE, OTHER, SELFPAY ==
[2024-04-20 14:08] VITALS: BMI 25.8
[2024-04-28 19:08] LABS: Add Manual Diff / Slide Review NO; Basophils Absolute Auto 0 /uL (0-100); Basophils Percent Auto 0.7 % (0-2); Eosinophils Absolute Auto 100 /uL (0-450); Hemoglobin 13.8 g/dL (12.0-16.0); Lymphocytes Absolute Auto 2100 /uL (1100-4500); Lymphocytes Percent Auto 37.6 % (25-40); Mean Corpuscular HGB Conc 33.8 % (30-36); Mean Corpuscular Volume 88.9 fL (80-100); Monocytes Absolute Auto 400 /uL (0-900); Monocytes Percent Auto 7.4 % (3-14); Neutrophils Absolute Auto 2900 /uL (1500-7000); Neutrophils Percent Auto 52.3 % (50-75); Platelet Count 318 X10^3/uL (150-400); Red Blood Cell Count 4.61 X10^6/uL (4.0-5.2); Red Cell Distribution Width 13.9 % (11.6-14.8); White Blood Cell Count 5.6 X10^3/uL (4.5-11.0)
[2024-04-28 19:13] LABS: Alanine Aminotransferase 25 IU/L (<35); Albumin 4.3 g/dL (3.5-5.0); Albumin Globulin Ratio 1.4 (1.0-2.8); Alkaline Phosphatase 98 U/L (38-126); Aspartate Aminotransferase 71 IU/L (14-36); BUN Creatinine Ratio 11.5 (6-22); Bilirubin Total 0.8 mg/dL (0.2-1.3); Blood Urea Nitrogen 10 mg/dL (7-17); Calcium 9.6 mg/dL (8.4-10.2); Carbon Dioxide 28 mmol/L (22-32); Chloride 104 mmol/L (98-107); Cholesterol 311 mg/dL (140-199); Estimated Glomerular Filt Rate > 60 mL/min (>60); Glucose 102 mg/dL (80-110); HDL Cholesterol 88 mg/dL (40-60); HEMOLYSIS 26 (0-50); LDL Cholesterol Calculated 193 mg/dL (<100); Potassium 4.3 mmol/L (3.4-5.1); Sodium 137 mmol/L (137-145); Total Protein 7.3 g/dL (6.3-8.2); Triglycerides 149 mg/dL (35-150)
[2024-04-28 19:29] LABS: Vitamin D 25 Hydroxy (D3) 52.2 ng/mL (30.0-100.0)
[2024-04-28 19:42] LABS: TSH w/ Reflex to FT4 1.95 uIU/mL (0.47-4.68)
== END ==
PROVIDERS: Internal Medicine Endocrinology, Diabetes & Metabolism; PCP Family Medicine; Referring Provider Family Medicine; Visit Provider Family Medicine
DX: I10 Essential (primary) hypertension (principal); E07.9 Disorder of thyroid, unspecified; M85.88 Other specified disorders of bone density and structure, other site; M85.80 Other specified disorders of bone density and structure, unspecified site; H47.012 Ischemic optic neuropathy, left eye; E78.5 Hyperlipidemia, unspecified; Z78.0 Asymptomatic menopausal state
CPT/HCPCS: 80053; 80061; 82306; 84443; 85025

== ENCOUNTER → 2025-05-11 10:21 | Outpatient (CLI) | payer MEDICARE, OTHER, SELFPAY ==
[2024-04-20 14:08] VITALS: BMI 25.8
[2025-05-11 18:38] LABS: Hematocrit 40.9 % (36-46); Hemoglobin 14.0 g/dL (12.0-16.0); Mean Corpuscular HGB Conc 34.3 % (30-36); Mean Corpuscular Hemoglobin 30.4 PG (26-34); Mean Corpuscular Volume 88.7 fL (80-100); Platelet Count 346 X10^3/uL (150-400)
[2025-05-11 18:54] LABS: Alanine Aminotransferase 29 IU/L (<35); Albumin 4.6 g/dL (3.5-5.0); Albumin Globulin Ratio 1.6 (1.0-2.8); Alkaline Phosphatase 102 U/L (38-126); Blood Urea Nitrogen 13 mg/dL (7-17); Calcium 9.5 mg/dL (8.4-10.2); Carbon Dioxide 28 mmol/L (22-32); Chloride 103 mmol/L (98-107); Cholesterol 258 mg/dL (140-199); Estimated Glomerular Filt Rate > 60 mL/min (>60); Globulin 2.8 g/dL (1.7-4.1); Glucose 98 mg/dL (70-99); HDL Cholesterol 104 mg/dL (40-60); HEMOLYSIS < 15 (0-50); Potassium 4.7 mmol/L (3.4-5.1); Sodium 138 mmol/L (137-145); Total Protein 7.4 g/dL (6.3-8.2); Triglycerides 158 mg/dL (35-150)
[2025-05-11 19:22] LABS: Thyroid Stimulating Hormone 2.07 uIU/mL (0.47-4.68)
== END ==
PROVIDERS: PCP Family Medicine; Visit Provider Family Medicine
DX: I10 Essential (primary) hypertension (principal); E78.5 Hyperlipidemia, unspecified; M85.88 Other specified disorders of bone density and structure, other site; R73.01 Impaired fasting glucose
CPT/HCPCS: 80053; 80061; 84443; 85027